=== PATIENT | male | born 1940 | race Caucasian/White ===

== ENCOUNTER 2017-10-09 19:56 | Emergency (ER) | payer OTHER ==
[~2017-10-09] VITALS: Ht 170.2 cm; Wt 90.6 kg
[2017-10-09 19:58] VITALS: TEMP 36.9; Ht 170.2 cm; Wt 90.6 kg
[2017-10-09] MEDS ORDERED: LIDOCAINE/EPINEPHRINE 1% 20 ML VIAL INFIL STA (20:11)
--- NOTE | 2017-10-09 21:17 | DIAGNOSTIC IMAGING REPORT ---
HEAD CT NONCONTRAST CT DOSE: 537.48 mGy.cm HISTORY: head injury, fall, forehead lac TECHNIQUE: Multiaxial CT images of the head were performed without the use of intravenous contrast. Automated exposure control was utilized for this study. A dose lowering technique was utilized adhering to the principles of ALARA. Comparison: None. Findings: Mild mucosal thickening within the ethmoid air cells. The mastoid air cells are clear. Mild frontal scalp swelling. The calvarium and skull base are intact. The ventricles and sulci are within normal limits. There is no mass, hematoma, midline shift, or acute infarct. Impression: No acute intracranial abnormality. Mild frontal scalp swelling. Electronically signed by: Torres Ho M.D. 10/09/2017 9:15 PM Dictated Date/Time: 10/09/2017 9:01 PM
--- NOTE | 2017-10-09 21:23 | EMERGENCY ROOM VISIT NOTE ---
ED Visit Note First contact with patient: 20:03 The patient was seen and examined with Esther Bhatia PA-C. I agree with the history, physical and findings. Please see the note for disposition and details. Laceration repaired. The patient is doing well. He was hypertensive but has not taken his medications at this evening. He will monitor his blood pressure. He has a follow-up this week with his primary. If he worsens in any way he will be back.
--- NOTE | 2017-10-09 21:25 | EMERGENCY ROOM VISIT NOTE ---
ED Visit Note First contact with patient: 20:03 CHIEF COMPLAINT: Facial laceration, fall HISTORY OF PRESENT ILLNESS: This 77-year-old male patient presents emergency department, ambulatory, with his , complaining of a laceration to the forehead. The patient was running and attempted to jump across a benton in his yard. He states he tripped over a shoelace and fell, striking the left side of his forehead on gravel and [place]. There was no loss of consciousness, vomiting , or unusual behavior afterwards. Denies neck pain. No headache, nausea, or blurred vision. There was moderate bleeding, however it is more controlled now than previously. The patient rates the pain as minimal and 0/10. The patient' s tetanus shot is up to date. REVIEW OF SYSTEMS: A 6 system review of systems was completed with positives and pertinent negatives listed in the HPI. ALLERGIES: None MEDICATIONS: Atenolol PMH: Hypertension SOCIAL HISTORY: The patient lives locally with family. He denies drug, alcohol , tobacco use. PHYSICAL EXAM: Vital Signs: Reviewed Nurse's notes, vital signs stable. GENERAL : This is a 77-year-old white male, in no acute distress, well-developed, well- nourished. NEURO: The patient is alert and oriented to person place and time. No focal neurological defects. EYES: Pupils are round, equal, and react to light. EOMI. EARS: No hemotympanum. NECK: Supple. No cervical spine tenderness. FACE: No facial bone tenderness or mandibular tenderness. The mouth can open fully. The teeth are well aligned. No loose or chipped teeth. SKIN: There is a 1.5 cm laceration in the anterior aspect of the left forehead. The edges gape apart with traction. There is minimal active bleeding and no foreign material in the wound. There are no deep structures present. Capillary refill less than two seconds. Normal sensation to light and sharp touch. RADIOLOGY: HEAD CT NONCONTRAST CT DOSE: 537.48 mGy.cm HISTORY: head injury, fall, forehead lac TECHNIQUE: Multiaxial CT images of the head were performed without the use of intravenous contrast. Automated exposure control was utilized for this study. A dose lowering technique was utilized adhering to the principles of ALARA. Comparison: None. Findings: Mild mucosal thickening within the ethmoid air cells. The mastoid air cells are clear. Mild frontal scalp swelling. The calvarium and skull base are intact. The ventricles and sulci are within normal limits. There is no mass, hematoma, midline shift, or acute infarct. Impression: No acute intracranial abnormality. Mild frontal scalp swelling. Electronically signed by: Torres Ho M.D. 10/09/2017 9:15 PM Dictated Date/Time: 10/09/2017 9:01 PM EMERGENCY DEPARTMENT COURSE: I examined the patient. CT scan performed and reviewed by myself and radiologist as above. Verbal consent was obtained to perform the procedure. Using sterile technique the wound was cleansed with Betadine. The area was sterilely draped. 4 ml of 1% lidocaine with epinephrine was used to anesthetize the laceration on the face. Once the patient was anesthetized, the wound was copiously irrigated under pressure with sterile saline. The wound was explored and was as described above. The laceration was repaired using 2 simple interrupted 5-0 Vicryl sutures to close the deep layer and 3 simple interrupted 5-0 nylon sutures with the wound edges being well approximated. The patient tolerated the procedure well. Hemostasis was achieved. The area was cleaned with sterile saline and dressed with bacitracin ointment. The patient was discharged home in good condition. The patient was seen and evaluated by Dr. Gao I attest that I have personally reviewed the patient's current medication list. Blood Pressure Screening: Patient was found to have a slightly elevated blood pressure due to circumstances. I do not believe that the patient requires hypertension monitoring. The patient does have a history of hypertension, and states he is planning on taking his blood pressure medication when he gets home. He does also have history of white coat hypertension. He will have the blood pressure rechecked. Differential diagnosis includes laceration, head injury, concussion, ICH, contusion, fracture, sprain/strain, tendon or ligament injury, neurovascular compromise, foreign body, assault, and others DIAGNOSIS: Facial laceration, fall, head injury The chart was completed utilizing [employer] Speech voice recognition software. Grammatical errors, random word insertions, pronoun errors, and incomplete sentences are an occasional consequence of this system due to software limitations, ambient noise, and hardware issues. Any formal questions or concerns about the content, text, or information contained within the body of this dictation should be directly addressed to the provider for clarification. Vital Signs Date Time Temp Pulse Resp B/P (MAP) Pulse Ox O2 Delivery O2 Flow Rate FiO2 10/09/17 21:57 83 18 177/97 96 Room Air 10/09/17 19:58 36.9 95 18 192/111 95 Room Air Departure Information Impression Primary Impression: Facial laceration Additional Impressions: Head injury Fall Dispostion Home / Self-Care Condition GOOD Referrals Eda Guerrero M.D. (PCP) Patient Instructions ED Laceration Facial Sutr Tape, [facility] Additional Instructions You have received 3 sutures on your forehead. These sutures are NOT dissolvable and WILL need to be removed by a health care provider in 6-7 days. You can return to the Emergency Department or contact your Primary Care Provider to have the sutures removed. Proper wound care is essential for adequate wound healing and infection prevention. You can shower and clean the wound with soap and water. Do not scour over the wound, pat dry with a towel. Do not submerse the wound (i.e. bathe or dish wash) until the sutures have been removed. You can use an antibiotic ointment with a dressing over the wound for the next 3-4 days. After this time you may leave the wound dry and open to the air. If crust develops over the wound you can use a Q-tip to apply a 1:1 peroxide:water solution to clean the wound. Look for signs of infection of the wound including: increased pain, swelling, foul discharge, streaking, or increased temperature. If any of these are noticed you should return to the Emergency Department for further assessment and treatment. As with any laceration you may have received nerve damage to the surrounding tissues. This damage may or may not be permanent. You should keep the area covered with sunscreen for the first 6 months to 1 year when at risk for exposure to help minimize scarring. You can also use scar reducing creams or Vitamin E oil to help minimize scarring. For pain control, you can use the following [id number] medicines (if >12 yo): Ibuprofen(Motrin, Advil) may be used for fever or pain. Use 600mg every six hours as needed. Take with food. Avoid using more than 2400mg in a 24 hour period. Do not use 2400mg per day for more than three consecutive days without physician direction. Prolonged inappropriate use can lead to stomach upset or ulcers. (AND/OR) Acetaminophen(Tylenol) may be used for fever or pain. Use 1000mg every six hours as needed. Avoid using more than 3000mg in a 24 hour period. Return to the emergency department if your symptoms worsen despite treatment course outlined above. Return to the ED immediately for any numbness, tingling, facial droop, slurred speech, confusion, passing out, dizziness, or other concerning symptoms. Problem Qualifiers Primary Impression: Facial laceration Encounter type: initial encounter Qualified Codes: S01.81XA - Laceration without foreign body of other part of head, initial encounter Additional Impressions: Head injury Encounter type: initial encounter Qualified Codes: S09.90XA - Unspecified injury of head, initial encounter Fall Encounter type: initial encounter Qualified Codes: W19.XXXA - Unspecified fall, initial encounter
[2017-10-09 21:57] VITALS: BP 177/97; PULSE 83; O2SAT 96
== END 2017-10-09 21:45 | disposition home or self-care (01) ==
LOC: C.EDB 19:58 → C.EDD 21:45
DX: S01.81XA Laceration without foreign body of other part of head, initial encounter (principal); S09.90XA Unspecified injury of head, initial encounter; W22.8XXA Striking against or struck by other objects, initial encounter; Y92.017 Garden or yard in single-family (private) house as the place of occurrence of the external cause; I10 Essential (primary) hypertension; Z79.899 Other long term (current) drug therapy